=== PATIENT | male | born 1955 | race Caucasian/White ===

== ENCOUNTER 2022-04-25 07:34 | Day surgery (SDC) | payer BC ==
[2022-04-22 18:51] VITALS: BMI 28.2
[2022-04-25] MEDS ORDERED: FENTANYL CITRATE/PF 50 MCG/ML VIAL ONE (10:20)
[2022-04-25] MEDS ORDERED: ROPIVACAINE HCL/PF 100 MG/20 ML VIAL ONE (10:20)
[2022-04-25] MEDS ORDERED: MIDAZOLAM HCL 2 MG/2 ML SINGLE DOSE VIAL ONE (10:20)
[2022-04-25] MEDS ORDERED: PROPOFOL 40 ML ONE (10:39)
[2022-04-25] MEDS ORDERED: SUCCINYLCHOLINE CHLORIDE 200 MG/10 ML SYRINGE ONE (10:39)
[2022-04-25] MEDS ORDERED: ONDANSETRON 4 MG/2 ML VIAL ONE (10:55)
[2022-04-25] MEDS ORDERED: DEXAMETHASONE SOD PHOSPHATE 4 MG/1 ML VIAL ONE (10:55)
[2022-04-25] MEDS ORDERED: KETOROLAC TROMETHAMINE 30 MG/1 ML VIAL ONE (10:55)
[2022-04-25] MEDS ORDERED: ceFAZolin SODIUM 1 GM VIAL ONE (10:55)
[2022-04-25] MEDS ORDERED: oxyCODONE HCL 5 MG TABLET PO PRN (12:21)
[2022-04-25] MEDS ORDERED: ONDANSETRON 4 MG/2 ML VIAL IVPUSH PRN (12:21)
[2022-04-25] MEDS ORDERED: LACTATED RINGERS SOLUTION 1,000 ML IV SCH (12:30)
[2022-04-25 13:26] VITALS: TEMP 97.1
[2022-04-25 13:57] VITALS: BP 120/74; PULSE 60; RESP 19
== END 2022-04-25 15:00 | disposition home or self-care (01) ==
LOC: FASU 07:34
PROVIDERS: ATTEND Orthopaedic Surgery
PROC: 0RQJ4ZZ Repair Right Shoulder Joint, Percutaneous Endoscopic Approach (ICD-10-PCS; 2022-04-25)
PROC: 0RBJ4ZZ Excision of Right Shoulder Joint, Percutaneous Endoscopic Approach (ICD-10-PCS; 2022-04-25)
PROC: 0PB94ZZ Excision of Right Clavicle, Percutaneous Endoscopic Approach (ICD-10-PCS; principal; 2022-04-25 11:16)
DX: M25.611 Stiffness of right shoulder, not elsewhere classified (principal); S43.432A Superior glenoid labrum lesion of left shoulder, initial encounter; M75.101 Unspecified rotator cuff tear or rupture of right shoulder, not specified as traumatic; M94.211 Chondromalacia, right shoulder; M75.41 Impingement syndrome of right shoulder; M24.011 Loose body in right shoulder; M67.211 Synovial hypertrophy, not elsewhere classified, right shoulder; X58.XXXA Exposure to other specified factors, initial encounter; Y93.9 Activity, unspecified; Y92.9 Unspecified place or not applicable
CPT/HCPCS: 94760